=== PATIENT | female | born 1980 | race Two or more races ===

== ENCOUNTER 2017-07-01 06:53 | Emergency (ER) | payer SELFPAY ==
[~2017-07-01] VITALS: Ht 160 cm; Wt 101.2 kg
[2017-07-01 07:12] VITALS: BP 149/82
[2017-07-01] MEDS ORDERED: NAPR-683 PO (07:33)
[2017-07-01] MEDS ORDERED: ACET325T9 PO (07:33)
--- NOTE | 2017-07-01 07:33 | PHYS DOC ---
Past Medical History Past Medical History: Asthma Past Surgical History: No Surgical History Smoking: Cigarettes Alcohol Use: None Drug Use: None Adult General Chief Complaint Chief Complaint: HAND PROBLEM HPI HPI Patient is a pleasant otherwise healthy 37-year-old male with a one-month history of pain and paresthesias to his hands and elbows and shoulders as been going for last 1 month. Patient worked a little seizures during repetitive motion for months and he developed some anterior shoulder pain while working out. 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 He the anterior shoulders bilaterally. Radiation to the inside of the elbow and paini n to the fingers. The pain is described as a throbbing dull ache that is worse when the mornings when he first arises and is better over the course of the day. He describes the pain as mild and throbbing worse with repetitive motion. He denies any fevers, chills, numbness just pain that it causes his past week. He denies any neck pain, denies any neck trauma, shortness of breath, night sweats, weight loss or joint swelling. My differential includes but not limited to viral polyarthritis, systemic medical diseases, rheumatism, hypermobility syndrome and fibromyalgia, reactive arthritis and irritable bowel disease, polymyalgia rheumatica, crystalline arthritis, gout, infectious arthritis, osteoarthritis, paraneoplastic disease, sarcoid arthropathy, fibroblastic rheumatism, sexually-transmitted diseases. Serum sickness, influenza. Review of Systems Review of Systems Constitutional: Denies fever or chills [] Eyes: Denies change in visual acuity, redness, or eye pain [] HENT: Denies nasal congestion or sore throat [] Respiratory: Denies cough or shortness of breath [] Cardiovascular: No additional information not addressed in HPI [] GI: Denies abdominal pain, nausea, vomiting, bloody stools or diarrhea [] : Denies dysuria or hematuria [] Musculoskeletal: Denies back pain patient is may complain of bilateral shoulder pain and elbow pain and hand pain with localized swelling and some paresthesias with repetitive motion. Integument: Denies rash or skin lesions [] Neurologic: Denies headache, focal weakness he describes some sensory changes in his hands bilaterally but is transient and episodic[] Endocrine: Denies polyuria or polydipsia [] All other systems were reviewed and found to be within normal limits, except as documented in this note. Allergies Allergies Allergies Coded Allergies Type Severity Reaction Last Updated Verified No Known Drug Allergies 07/01/17 No Physical Exam Physical Exam Vital signs recorded on the chart within normal limits. Constitutional: Well developed, well nourished, no acute distress, non-toxic appearance. [] HENT: Normocephalic, atraumatic, bilateral external ears normal, oropharynx moist, no oral exudates, nose normal. [] Eyes: PERRLA, EOMI, conjunctiva normal, no discharge. [] Neck: Normal range of motion, no tenderness, supple, no stridor. Negative Spurling's test[] Cardiovascular:Heart rate regular rhythm, no murmur [] Lungs & Thorax: Bilateral breath sounds clear to auscultation [] Skin: Warm, dry, no erythema, no rash. [] Back: No tenderness Extremities: no cyanosis, no clubbing, ROM intact, no edema. Patient has full range of motion with mild tenderness to palpation over the bicipital groove bilaterally that is reproducible pain with direct pressure. Patient has great range of motion at the elbow and wrist he has a negative Tinel sign and Phalen' s test patient does have tenderness to palpation over the ulnar nerves bilaterally that does exacerbate some of the symptoms in his arms patient does states great strength in each of the muscle of the hand to resistance +5 out of 5 normal range of motion and strength at the wrist, elbows and shoulders. He has a negative Dowling's impingement test. Neurologic: Alert and oriented X 3, normal motor function, normal sensory function, no focal deficits noted. [] Psychologic: Affect normal, judgement normal, mood normal. [] Current Patient Data Vital Signs Vital Signs Date Time Temp Pulse Resp B/P (MAP) Pulse Ox O2 Delivery O2 Flow Rate FiO2 07/01/17 07:12 98.8 70 20 96 Room Air 98.8 EKG EKG [] Radiology/Procedures Radiology/Procedures [] Course & Med Decision Making Course & Med Decision Making Pertinent Labs and Imaging studies reviewed. (See chart for details) []Over the last month patient is separate from intermittent pain swelling and paresthesias in his hands and shoulders. He demonstrates several different possible etiologies for his symptoms. He may have some osteoarthritis in his joints. Also maybe suffering from a neuropraxia from the elbows or tennis elbow. He also may be suffering from some bicipital tendinitis which may be also exacerbated by his workouts and general construction work. I've offered him physical therapy follow-up, orthopedic follow-up for an evaluation, and a strategy of NSAID use and range of motion exercises and stretching help with his symptoms. I do not believe this is associated with a cervical spine injury or impingement at this time doubt carpal tunnel syndrome or some other entrapment phenomenon within repetitive muscle use. There is no obvious signs of compartment syndrome or muscle breakdown. Dragon Disclaimer Dragon Disclaimer This electronic medical record was generated, in whole or in part, using a voice recognition dictation system. Departure Departure Impression: Primary Impression: Bicipital tendinitis of left shoulder Additional Impressions: Bicipital tendinitis of right shoulder Paresthesias Neuropraxia of left ulnar nerve Neuropraxia of right ulnar nerve Disposition: 01 HOME, SELF-CARE Condition: STABLE Referrals: NO PCP (PCP) SUSSY SALAZAR II, MD Patient Instructions: Biceps Tendon Tendinitis (Proximal) and Tenosynovitis with Rehab-SportsMed, Paresthesia, Tennis Elbow Additional Instructions: discharge: I've spoken with the patient and/or caregivers. I've explained the patient's condition, diagnosis and treatment plan based on information available to me at this time. I've answered the patient's and/or caregivers questions and addressed any concerns. The patient and/or caregivers have a good understanding the patient's diagnosis, condition and treatment plan as can be expected at this point. Vital signs have been stabilized. The patient's condition is stable for discharge from the emergency department. The patient will pursue further outpatient evaluation with her primary care provider or other designated consulting physician as outlined in the discharge instructions. Patient and/or caregivers are agreeable to this plan of care and follow-up instructions have been explained in detail. The patient and/or caregivers have received these instructions in written format and expressed understanding of these discharge instructions. The patient and her caregivers are aware that if any significant change in condition or worsening of symptoms should prompt him to immediately return to this of the closest emergency department. If an emergent department is not readily available I would encourage him to call 911. Scripts Acetaminophen (TYLENOL) 325 Mg Tablet 1-2 TAB PO QID, #60 TAB 2 Refills Prov: MARA REID MD 07/01/17 Naproxen (NAPROSYN) 500 Mg Tablet 1 TAB PO BID, #14 TAB 1 Refill Prov: MARA REID MD 07/01/17 Problem Qualifiers MARA REID MD Jul 01, 2017 07:33
[2017-07-01] MEDS ORDERED: NAPROXEN 500 MG TABLET ONE (07:37)
[2017-07-01] MEDS ORDERED: NAPROXEN 500 MG TABLET PO ONE (07:45)
== END 2017-07-01 07:45 | disposition home or self-care (01) ==
LOC: ER 06:53
DX: S54.02XA Injury of ulnar nerve at forearm level, left arm, initial encounter (principal); S54.01XA Injury of ulnar nerve at forearm level, right arm, initial encounter; M75.22 Bicipital tendinitis, left shoulder; M75.21 Bicipital tendinitis, right shoulder; F17.210 Nicotine dependence, cigarettes, uncomplicated; J45.909 Unspecified asthma, uncomplicated; X58.XXXA Exposure to other specified factors, initial encounter; Y93.89 Activity, other specified; Y92.89 Other specified places as the place of occurrence of the external cause; Y99.8 Other external cause status
CPT/HCPCS: 99282